=== PATIENT | male | born 1945 | race Caucasian/White ===

== ENCOUNTER 2016-12-30 22:28 | Observation (INO) | payer MEDICARE, OTHER ==
[~2016-12-30 22:28] MED LIST: LEXA10TA PO; SAW80CAP PO
[2016-12-30 22:32] VITALS: BP 157/78; PULSE 70; RESP 16; TEMP 98.6; O2SAT 96
[2016-12-30 22:46] VITALS: BP 124/65; PULSE 69; RESP 16; O2SAT 95
[2016-12-30] MEDS ORDERED: NEUR300C PO (22:54)
[2016-12-30] MEDS ORDERED: SODIUM CHLORIDE 0.9% FLUSH 10 ML FLUSH IVF PRN (23:00)
[2016-12-30 23:23] LABS: AUTOMATED NEUTROPHIL # 3.5 TH/MM3 (1.8-7.7); BASOPHIL # 0.1 TH/MM3 (0-0.2); BASOPHIL % 1.2 % (0.0-2.0); EOSINOPHIL # 0.3 TH/MM3 (0-0.4); EOSINOPHIL % 3.7 % (0.0-4.0); HEMATOCRIT 38.5 % (39.0-51.0); HEMO FLAGS DIFF FINAL; LYMPH % 36.8 % (9.0-44.0); LYMPHOCYTE # 2.6 TH/MM3 (1.0-4.8); MEAN CELL VOLUME 89.8 FL (80.0-100.0); MEAN CORPUSCULAR HEMOGLOBIN 29.7 PG (27.0-34.0); MEAN CORPUSCULAR HGB CONC 33.1 % (32.0-36.0); MONO % 7.9 % (0.0-8.0); NEUT % 50.4 % (16.0-70.0); PLATELET COUNT 218 TH/MM3 (150-450); RED BLOOD COUNT 4.29 MIL/MM3 (4.50-5.90); RED CELL DISTRIBUTION WIDTH 13.1 % (11.6-17.2)
--- NOTE | 2016-12-30 23:26 | PD ---
HPI Chief Complaint: Cardiac Complaint Time Seen by Provider: 22:42 Travel History International Travel<30 days: No Contact w/Intl Traveler<30days: No Traveled to known affect area: No History of Present Illness HPI The patient is a 71 year old male who presents to the [facility] emergency department with a history of palpitations that he reports began at 7 PM. He reports that they seemed to spontaneously resolve, however he then began to have sharp/ice pick sensation in the left side of his chest. He reports that 3 hours ago he also began to have shortness of breath, difficulty taking a deep breath. He denies having any cough or congestion. He reports that he did this morning had 2 episodes of vomiting. He denies having any diarrhea. He reports that he has been having some constipation. His last bowel movement was 2 days ago. He reports having chronic difficulty urinating with urinary frequency and urgency. He has seen Dr. Velez for this and been diagnosed with prostatic hypertrophy, however he is not currently taking Flomax for this. The patient reports that he has an allergy to aspirin as well as nitroglycerin. The patient reports that today he has had 7 beers prior to arrival. The patient denies having any prior history of myocardial infarction. He reports that he has had atrial fibrillation in the past. He denies being on any blood thinners. He reports that his primary care physician is Dr. Domingo Weston. He reports that he last had a treadmill stress test done over a year ago. The patient denies any recent fevers, cough, congestion, neck pain, abdominal pain, or neurologic symptoms. [facility] Past Medical History Narrative Medical The patient's past medical history is significant for alcohol abuse, arthritis, anxiety disorder, history of skin cancer, history of paroxysmal atrial fibrillation, history of diverticulitis, history of chronic back pain, history of posttraumatic stress disorder. Arthritis: Yes Blood Disorders: No Anxiety: Yes Depression: Yes Heart Rhythm Problems: No Cancer: Yes (Skin) Cardiac Catheterization: No Cardiovascular Problems: Yes High Cholesterol: No Chemotherapy: No Chest Pain: Yes Congestive Heart Failure: No Coronary Artery Disease: Yes Diabetes: No Diminished Hearing: No Endocrine: No Gastrointestinal Disorders: Yes (Divurticulitis) GERD: No Glaucoma: No Genitourinary: No Hepatitis: No Hiatal Hernia: No Heparin Induced Thrombocytopen: No Hypertension: Yes Immune Disorder: No Implanted Vascular Access Dvce: No Musculoskeletal: Yes (Back) Neurologic: No Psychiatric: Yes (PTSD) Reproductive: No Respiratory: No Immunizations Current: Yes Myocardial Infarction: No Radiation Therapy: No Schizophrenia: Yes Ulcer: No Tetanus Vaccination: < 5 Years Influenza Vaccination: Yes Past Surgical History Narrative Surgical The patient's past surgical history is significant for an appendectomy, skin cancer removal. Abdominal Surgery: Yes Appendectomy: Yes Cardiac Surgery: No Cholecystectomy: No Coronary Artery Bypass Graft: No Ear Surgery: No Endocrine Surgery: No Eye Surgery: No Genitourinary Surgery: No Gynecologic Surgery: No Neurologic Surgery: No Oral Surgery: No Thoracic Surgery: No Other Surgery: Yes (Appendectomy, Skin cancer removal) Family History Family Myocardial Infarction: Yes (FATHER & MOTHER) Social History Alcohol Use: Yes (FREQUENTLY today 7 beers) Tobacco Use: No Substance Use: No Allergies-Medications (Allergen,Severity, Reaction): Coded Allergies: Aspirin (Verified Allergy, Severe, HIVES, 12/30/16) Ibuprofen (Verified Allergy, Severe, HIVES, 12/30/16) Nitroglycerin (Verified Allergy, Severe, HIVES/HYPERTENSION, 12/30/16) Shrimp (Verified Allergy, Severe, HIVES, 12/30/16) Nonsteroidal Anti-Inflammatory Agts (Verified Allergy, Unknown, hives, 12/30) Reported Meds & Prescriptions Reported Meds & Active Scripts Active Reported Neurontin (Gabapentin) 300 Mg Cap 300 Mg PO BID Review of Systems Except as stated in HPI: all other systems reviewed are Neg General / Constitutional: No: Fever Eyes: No: Visual changes HENT: No: Headaches Cardiovascular: Positive: Chest Pain or Discomfort, Palpitations, Dyspnea on exertion, No: Diaphoresis Respiratory: Positive: Shortness of Breath, No: Cough Gastrointestinal: Positive: Nausea, Vomiting (2 this morning), Constipation, Changes in Bowel Habits, No: Diarrhea, Abdominal Pain, Hematemesis, Hematochezia, Indigestion, Loss of Appetite Genitourinary: No: Dysuria Musculoskeletal: No: Pain Skin: No Rash Neurologic: No: Weakness Psychiatric: No: Depression Endocrine: No: Polydipsia Hematologic/Lymphatic: No: Easy Bruising Physical Exam Narrative General: The patient is a well-developed well-nourished male in no acute distress. Head and Neck exam: Head is normocephalic atraumatic. Eyes: EOMI, pupils are equal round and reactive to light. Nose: Midline septum with pink mucous membranes Mouth: Dentition unremarkable. Moist mucus membranes. Posterior oropharynx is not erythematous. No tonsillar hypertrophy. Uvula midline. Airway patent. Neck: No palpable lymphadenopathy. No nuchal rigidity. No thyromegaly. Cardiovascular: Regular rate and rhythm without murmurs, gallops, or rubs. No pulse deficit to the extremities and simultaneous auscultation and palpation of his radial artery. Lungs: Clear to auscultation bilaterally. No wheezes, rhonchi, or rales. Abdomen: Soft, with reported tenderness on palpation of the midepigastric area, no other tenderness on palpation of the other quadrants of the abdomen. No guarding, rebound, or rigidity. Normal bowel sounds are audible. No tenderness on palpation of McBurney's point. Negative Vanderwagen sign. Extremities: No clubbing, cyanosis, or edema. 2+ pulses in all 4 extremities. No calf tenderness on palpation. Back: No costovertebral angle tenderness to palpation. Neurologic Exam: Cranial nerves 2-12 were intact on exam. Strength is 5/5 in all 4 extremities. No sensory deficits noted. The patient is oriented to person, place, time, and situation. Skin Exam: No rash noted. Intact skin that is warm and dry. Data Data Last Documented VS Vital Signs Date Time Temp Pulse Resp B/P Pulse Ox O2 Delivery O2 Flow Rate FiO2 12/30/16 22:46 69 16 124/65 95 Nasal Cannula 2 12/30/16 22:32 98.6 Orders Complete Blood Count With Diff (12/30/16 22:34) Electrocardiogram (12/30/16 22:51) B-Type Natriuretic Peptide (12/30/16 22:51) Ckmb (Isoenzyme) Profile (12/30/16 22:51) Magnesium (Mg) (12/30/16 22:51) Prothrombin Time / Inr (Pt) (12/30/16 22:51) Act Partial Throm Time (Ptt) (12/30/16 22:51) Troponin I (12/30/16 22:51) Lipase (12/30/16 22:51) Chest, Single Ap (12/30/16 22:51) Ecg Monitoring (12/30/16 22:51) Bilateral Bp Monitoring (12/30/16 22:51) Iv Access Insert/Monitor (12/30/16 22:51) Oximetry (12/30/16 22:51) Oxygen Administration (12/30/16 22:51) Sodium Chloride 0.9% Flush (Ns Flush) (12/30/16 23:00) Ondansetron Inj (Zofran Inj) (12/30/16 23:30) Pantoprazole Inj (Protonix Inj) (12/30/16 23:30) Sodium Chlorid 0.9% 500 Ml Inj (Ns 500 M (12/30/16 23:30) Comprehensive Metabolic Panel (12/30/16 22:56) CKMB (12/30/16 22:56) CKMB% (12/30/16 22:56) Admit Order (Ed Use Only) (12/31/16 00:53) Labs Laboratory Tests Test 12/30/16 12/30/16 22:56 23:13 Prothrombin Time 10.5 SEC Prothromb Time International 1.0 RATIO Ratio Activated Partial 25.9 SEC Thromboplast Time Sodium Level 140 MEQ/L Potassium Level 3.9 MEQ/L Chloride Level 106 MEQ/L Carbon Dioxide Level 25.7 MEQ/L Anion Gap 8 MEQ/L Blood Urea Nitrogen 16 MG/DL Creatinine 0.92 MG/DL Estimat Glomerular Filtration 81 ML/MIN Rate Random Glucose 72 MG/DL Calcium Level 8.8 MG/DL Magnesium Level 2.2 MG/DL Total Bilirubin 0.2 MG/DL Aspartate Amino Transf 17 U/L (AST/SGOT) Alanine Aminotransferase 23 U/L (ALT/SGPT) Alkaline Phosphatase 72 U/L Total Creatine Kinase 101 U/L Creatine Kinase MB 1.1 NG/ML Troponin I LESS THAN 0.02 NG/ML B-Type Natriuretic Peptide 18 PG/ML Total Protein 7.2 GM/DL Albumin 3.9 GM/DL Lipase 94 U/L White Blood Count 7.0 TH/MM3 Red Blood Count 4.29 MIL/MM3 Hemoglobin 12.7 GM/DL Hematocrit 38.5 % Mean Corpuscular Volume 89.8 FL Mean Corpuscular Hemoglobin 29.7 PG Mean Corpuscular Hemoglobin 33.1 % Concent Red Cell Distribution Width 13.1 % Platelet Count 218 TH/MM3 Mean Platelet Volume 7.8 FL Neutrophils (%) (Auto) 50.4 % Lymphocytes (%) (Auto) 36.8 % Monocytes (%) (Auto) 7.9 % Eosinophils (%) (Auto) 3.7 % Basophils (%) (Auto) 1.2 % Neutrophils # (Auto) 3.5 TH/MM3 Lymphocytes # (Auto) 2.6 TH/MM3 Monocytes # (Auto) 0.6 TH/MM3 Eosinophils # (Auto) 0.3 TH/MM3 Basophils # (Auto) 0.1 TH/MM3 CBC Comment DIFF FINAL Differential Comment MDM Medical Decision Making Medical Screen Exam Complete: Yes Emergency Medical Condition: Yes Medical Record Reviewed: Yes Interpretation(s) Last Impressions Chest X-Ray 12/30/16 2770 Signed Impressions: Service Date/Time: Friday, December 30, 2016 23:25 - CONCLUSION: Normal examination. Stephen Gustafson MD Differential Diagnosis Pancreatitis, versus peptic ulcer disease, versus gastritis, versus acid reflux , versus acute coronary syndrome, versus paroxysmal atrial fibrillation, versus electrolyte derangements, versus dehydration Narrative Course During the course of the patients emergency department visit, the patients history, examination, and differential diagnosis were reviewed with the patient. The patient had IV access obtained and blood work sent for analysis. The patient was placed on a diagnostic cardiac sonographer with oximetry and blood pressure monitoring. An EKG was done on arrival. The patient's EKG reveals a sinus rhythm of 64, and no acute ST segment elevation or depression, QRS duration is 94 ms, QTc is 417 ms. The patient was initially provided Protonix 40 mg IV, Zofran 4 mg IV for nausea , normal saline a 500 mL bolus. The patients laboratory studies were reviewed and remarkable for a white count of 7.0, hemoglobin 12.7, platelets 218 with a normal differential CMP is remarkable for a glucose of 72, initial set of cardiac enzymes are negative, BNP 18, PT PTT within normal limits. Radiology studies were reviewed and remarkable for a chest x-ray that shows no acute abnormality. The patient was agreeable with the plan to be admitted to the chest pain center for rule out serial cardiac enzyme protocol. The patients results were discussed with the patient, including the plan of care. I explained that further testing and/ or monitoring is indicated based on the patients history, examination, and/ or laboratory findings. Therefore, I recommended admission for additional evaluation. The patient expressed understanding and was agreeable with this plan. The patient was admitted to the hospital in stable condition and sent to a bed under the care of the chest pain center. Diagnosis Primary Impression: Palpitations Additional Impression: Chest pain Qualified Code: R07.9 - Chest pain, unspecified type Admitting Information Admitting Physician Requests: Oneyda Rey MD Dec 30, 2016 23:26
[2016-12-30] MEDS ORDERED: SODIUM CHLORID 0.9% 500 ML INJ 500 ML IV ONE (23:30)
[2016-12-30] MEDS ORDERED: ONDANSETRON HCL 4 MG/2 ML VIAL IV ONE (23:30)
[2016-12-30] MEDS ORDERED: PANTOPRAZOLE SODIUM 40 MG VIAL IV PUSH ONE (23:30)
[2016-12-30 23:42] LABS: APTT (PATIENT) 25.9 SEC (24.3-30.1); PROTHROMBIN TIME - PATIENT 10.5 SEC (9.8-11.6)
--- NOTE | 2016-12-30 23:53 | RADRPT ---
EXAM DATE/TIME: 12/30/2016 23:25 [facility] COMPARISON: CHEST SINGLE AP, July 03, 2016, 16:08. INDICATIONS : Chest pain. MEDICAL HISTORY : None. SURGICAL HISTORY : None. ENCOUNTER: Initial ACUITY: 1 day PAIN SCORE: 0/10 LOCATION: Bilateral chest FINDINGS: A single view of the chest demonstrates the lungs to be symmetrically aerated without evidence of mas s, infiltrate or effusion. The cardiomediastinal contours are unremarkable. Osseous structures are intact. CONCLUSION: Normal examination. Stephen Gustafson MD on December 30, 2016 at 23:51 Board Certified Radiologist. This report was verified electronically.
[2016-12-30 23:54] LABS: ALT (GPT) 23 U/L (12-78); ANION GAP 8 MEQ/L (5-15); AST (GOT) 17 U/L (15-37); BICARBONATE 25.7 MEQ/L (21.0-32.0); BLOOD UREA NITROGEN 16 MG/DL (7-18); CHLORIDE 106 MEQ/L (98-107); GLOMERULAR FILTRATION RATE 81 ML/MIN (>89); MAGNESIUM 2.2 MG/DL (1.5-2.5); POTASSIUM 3.9 MEQ/L (3.5-5.1); SODIUM (NA) 140 MEQ/L (136-145)
[2016-12-30 23:58] LABS: ALKALINE PHOSPHATASE 72 U/L (45-117); CREATINE KINASE 101 U/L (39-308); TOTAL BILIRUBIN ADULT 0.2 MG/DL (0.2-1.0)
[2016-12-31 00:10] LABS: CKMB 1.1 NG/ML (0.5-3.6)
[2016-12-31] MEDS ORDERED: ACETAMINOPHEN 500 MG CPLT PO PRN (01:45)
[2016-12-31] MEDS ORDERED: SODIUM CHLORIDE 0.9% FLUSH 10 ML FLUSH IV FLUSH PRN (01:45)
[2016-12-31] MEDS ORDERED: ONDANSETRON HCL 4 MG/2 ML VIAL IV PRN (01:45)
[2016-12-31 02:00] VITALS: BP 104/61; PULSE 70; RESP 16; O2SAT 97
[2016-12-31 02:56] LABS: CREATINE KINASE 84 U/L (39-308)
[2016-12-31 03:01] VITALS: PULSE 54
[2016-12-31 04:34] VITALS: BP 110/62; PULSE 66; RESP 18; TEMP 98.4; O2SAT 95
[2016-12-31 05:00] VITALS: O2SAT 96
[2016-12-31 05:07] LABS: CREATINE KINASE 83 U/L (39-308)
[2016-12-31 07:33] VITALS: BP 121/63; PULSE 63; RESP 16; TEMP 99.1; O2SAT 98
--- NOTE | 2016-12-31 08:54 | HHI.HP ---
[facility] Primary Care Physician Domingo Weston MD Chief Complaint Palpitations History of Present Illness This is a 71-year-old male that presents to ED with complaint of palpitations yesterday as well as having a dull ache lasted less than 2 minutes. He has history of paroxysmal A. fib was observed May 2016. He has not followed up with primary care or manager diversity since. Denies history of CAD. Denies recent travel. Denies recent illness. Has had no nausea, diaphoresis, or shortness of breath with the symptoms. Review of Systems General: Patient denies fevers, chills recent, and recent travel HEENT: Patient denies headache, sore throat, difficulty swallowing. Cardiovascular: Has the chest discomfort as mentioned above. Complains of palpitations but has a hard time describing them. No syncope. Denies diaphoresis. Respiratory: Denies shortness of breath or inspirational chest discomfort. Denies coughing wheezing or hemoptysis. GI: Patient denies nausea, vomiting, diarrhea, abdominal pain, bloody stools. Musculoskeletal: Patient denies joint pain or edema. Denies calf pain or edema. Neurovascular: Patient denies numbness, tingling, weakness in extremities. Denies headache. Endocrine: Denies polyuria and polydipsia. Hematologic: Denies easy bruising. Skin: Denies rash or itching. Past Family Social History Allergies: Coded Allergies: Aspirin (Verified Allergy, Severe, HIVES, 12/30/16) Ibuprofen (Verified Allergy, Severe, HIVES, 12/30/16) Nitroglycerin (Verified Allergy, Severe, HIVES/HYPERTENSION, 12/30/16) Shrimp (Verified Allergy, Severe, HIVES, 12/30/16) Nonsteroidal Anti-Inflammatory Agts (Verified Allergy, Unknown, hives, 12/30) Past Medical History Paroxysmal atrial fibrillation. PTSD. Alcohol abuse. Denies hypertension, hyperlipidemia, diabetes, and CAD. Past Surgical History Noncontributory. Reported Medications Reported Meds & Active Scripts Active Reported Neurontin (Gabapentin) 300 Mg Cap 300 Mg PO BID Active Ordered Medications Current Medications Medications (Trade) Dose Ordered Sig/Luba Route Start Time Stop Time Status Last Admin (NS Flush) 2 ml UNSCH PRN IVF 12/30/16 23:00 (NS Flush) 2 ml UNSCH PRN IV FLUSH 12/31/16 01:45 (NS Flush) 2 ml BID IV FLUSH 12/31/16 09:00 (Tylenol) 500 mg Q4H PRN PO 12/31/16 01:45 (Zofran Inj) 4 mg Q6H PRN IV 12/31/16 01:45 (Protonix) 40 mg DAILY PO 12/31/16 09:00 Family History Denies family history of CAD. Social History Patient continues to drink alcohol. States he longer smokes cigarettes. Denies illicit drugs. Physical Exam Vital Signs Vital Signs Date Time Temp Pulse Resp B/P Pulse Ox O2 Delivery O2 Flow Rate FiO2 12/31/16 07:33 99.1 63 16 121/63 98 12/31/16 05:00 96 Nasal Cannula 2.00 12/31/16 04:34 98.4 66 18 110/62 95 12/31/16 03:01 54 12/31/16 02:00 70 16 104/61 97 Nasal Cannula 2 12/30/16 22:46 69 16 124/65 95 Nasal Cannula 2 12/30/16 22:32 98.6 70 16 157/78 96 Room Air Physical Exam GENERAL: This is a well-nourished, well-developed patient, in no apparent distress. Patient speaks in clear complete sentences. Patient is pleasant. HEENT: Head is atraumatic and normocephalic. Neck is supple without lymphadenopathy and trachea is midline. No JVD or carotid bruits. CARDIOVASCULAR: Regular rate and rhythm without murmurs, gallops, or rubs. RESPIRATORY: Clear to auscultation. Breath sounds equal bilaterally. No wheezes , rales, or rhonchi. Chest wall is nontender. No use of accessory muscles. GASTROINTESTINAL: Abdomen is nontender, nondistended. Abdomen soft. No obvious pulsatile mass or bruit. No CVA tenderness. Strong femoral pulses bilaterally. Normal bowel sounds in all quadrants. MUSCULOSKELETAL: Patient is moving upper and lower extremities freely. No calf tenderness or edema, no Homans sign. Strong pulses in upper and lower extremities. NEUROLOGICAL: Patient is alert and oriented. Cranial nerves 2-12 are grossly intact. No focal deficits and speech is clear. SKIN: No rash and turgor is normal. Laboratory Laboratory Tests Test 12/30/16 12/30/16 12/31/16 12/31/16 22:56 23:13 02:01 04:03 Prothrombin Time 10.5 Prothromb Time International 1.0 Ratio Activated Partial 25.9 Thromboplast Time Sodium Level 140 Potassium Level 3.9 Chloride Level 106 Carbon Dioxide Level 25.7 Anion Gap 8 Blood Urea Nitrogen 16 Creatinine 0.92 Estimat Glomerular Filtration 81 Rate Random Glucose 72 Calcium Level 8.8 Magnesium Level 2.2 Total Bilirubin 0.2 Aspartate Amino Transf 17 (AST/SGOT) Alanine Aminotransferase 23 (ALT/SGPT) Alkaline Phosphatase 72 Total Creatine Kinase 101 84 83 Creatine Kinase MB 1.1 Troponin I LESS THAN 0.02 LESS THAN 0.02 LESS THAN 0.02 B-Type Natriuretic Peptide 18 Total Protein 7.2 Albumin 3.9 Lipase 94 White Blood Count 7.0 Red Blood Count 4.29 Hemoglobin 12.7 Hematocrit 38.5 Mean Corpuscular Volume 89.8 Mean Corpuscular Hemoglobin 29.7 Mean Corpuscular Hemoglobin 33.1 Concent Red Cell Distribution Width 13.1 Platelet Count 218 Mean Platelet Volume 7.8 Neutrophils (%) (Auto) 50.4 Lymphocytes (%) (Auto) 36.8 Monocytes (%) (Auto) 7.9 Eosinophils (%) (Auto) 3.7 Basophils (%) (Auto) 1.2 Neutrophils # (Auto) 3.5 Lymphocytes # (Auto) 2.6 Monocytes # (Auto) 0.6 Eosinophils # (Auto) 0.3 Basophils # (Auto) 0.1 CBC Comment DIFF FINAL Differential Comment Result Diagram: 12/30/16 2313 12/30/16 2256 Imaging Last 24 hours Impressions Chest X-Ray 12/30/161 Signed Impressions: Service Date/Time: Friday, December 30, 2016 23:25 - CONCLUSION: Normal examination. Stephen Gustafson MD Course EKG is a sinus rhythm to sinus bradycardia without significant ST segment depressions or elevations. Assessment and Plan Assessment and Plan * Palpitations: Patient has been observed on the monitor overnight. There have been no arrhythmias. He has had serial cardiac enzymes and EKGs for ruling out purposes. He was seen by Dr. Anderson cardiology in the chest pain center and will be discharged home at this time with instructions to follow-up with a local primary care physician. * History of paroxysmal atrial for ablation: Patient has been in sinus rhythm while being monitored in the chest pain center. He is a Clayton score of 1. He is declining aspirin as well as declining stress testing. He states he had a stress test 4 months ago that was okay. Patient is stable this time. He is agreeable to this plan.. Chad Alaniz Dec 31, 2016 08:54
--- NOTE | 2016-12-31 08:56 | HHI.DCPOC ---
Discharge Care Plan Diagnosis: (1) Palpitations (2) Paroxysmal atrial fibrillation (3) Alcohol abuse Goals to Promote Your Health * To prevent worsening of your condition and complications * To maintain your health at the optimal level Directions to Meet Your Goals Take your medications as prescribed Follow your dietary instruction Follow activity as directed Keep your appointments as scheduled Take your immunizations and boosters as scheduled If your symptoms worsen call your PCP, if no PCP go to Urgent Care Center or Emergency Room Smoking is Dangerous to Your Health. Avoid second hand smoke Call the 24-hour hour crisis hotline for domestic abuse at Chad Alaniz Dec 31, 2016 08:56
[2016-12-31 08:57] VITALS: PULSE 60
[2016-12-31] MEDS ORDERED: PANTOPRAZOLE SOD 40 MG DELAYED RELEASE TAB PO SCH (09:00)
[2016-12-31] MEDS ORDERED: SODIUM CHLORIDE 0.9% FLUSH 10 ML FLUSH IV FLUSH SCH (09:00)
--- NOTE | 2016-12-31 16:18 | EKG ---
Date Performed: 12/31/2016 Time Performed: 05:10:59 PTAGE: 71 years EKG: SINUS BRADYCARDIA BORDERLINE ECG Since PREVIOUS TRACING , no significant change noted PREVIOUS TRACIN12/31/2016 02.13 DOCTOR: Camille Anderson Interpretating Date/Time 12/31/2016 16:16:25
--- NOTE | 2016-12-31 16:19 | EKG ---
Date Performed: 12/31/2016 Time Performed: 02:13:00 PTAGE: 71 years EKG: SINUS BRADYCARDIA BORDERLINE ECG Since PREVIOUS TRACING , no significant change noted PREVIOUS TRACIN12/30/2016 22.59 DOCTOR: Camille Anderson Interpretating Date/Time 12/31/2016 16:16:59
--- NOTE | 2016-12-31 16:19 | EKG ---
Date Performed: 12/30/2016 Time Performed: 22:59:44 PTAGE: 71 years EKG: Sinus rhythm NORMAL ECG Since PREVIOUS TRACING , no significant change noted PREVIOUS TRACIN07/03/2016 16.09 DOCTOR: Camille Anderson Interpretating Date/Time 12/31/2016 16:17:24
== END 2016-12-31 10:22 | disposition home or self-care (01) ==
LOC: NEPC 22:28 → NEDA 12-31 00:54 → NEPFCDU 12-31 02:29
PROVIDERS: ADMIT Internal Medicine Interventional Cardiology; ATTEND Internal Medicine Interventional Cardiology
DX: R00.2 Palpitations (principal); I48.0 Paroxysmal atrial fibrillation; I25.10 Atherosclerotic heart disease of native coronary artery without angina pectoris; I10 Essential (primary) hypertension; F20.9 Schizophrenia, unspecified; M19.90 Unspecified osteoarthritis, unspecified site; F17.210 Nicotine dependence, cigarettes, uncomplicated; Z85.828 Personal history of other malignant neoplasm of skin; Z88.8 Allergy status to other drugs, medicaments and biological substances; Z88.6 Allergy status to analgesic agent; Z91.013 Allergy to seafood
CPT/HCPCS: 71010; 80053; 82550; 82552; 82948; 83690; 83735; 83880; 84484; 85025; 85610; 85730; 93005; 96361; 96374; 96375; 99285; C9113; G0378; J2405; J7040

== ENCOUNTER 2017-01-01 21:48 | Observation (INO) | payer MEDICARE, OTHER ==
[~2017-01-01 21:48] MED LIST changes: -LEXA10TA PO; +NEUR300C PO; -SAW80CAP PO
[2017-01-01 21:50] VITALS: BP 127/71; PULSE 79; RESP 18; TEMP 99.6; O2SAT 96
--- NOTE | 2017-01-01 21:58 | PD ---
Physical Exam Time Seen by Provider: 21:56 Narrative 71yo M c/o chest pressure, SOB, and Nausea for the past several days with worsening tonight. HX afib and does not take medications. Reports heart palpitations. Patient seen in triage. VS reviewed. Awaiting bed placement. Data Data Last Documented VS Vital Signs Date Time Temp Pulse Resp B/P Pulse Ox O2 Delivery O2 Flow Rate FiO2 01/01/17 21:50 99.6 79 18 127/71 96 Room Air MDM Supervised Visit with JOY: Raquel Raymond Jan 01, 2017 21:58
--- NOTE | 2017-01-01 22:47 | PD ---
HPI Chief Complaint: Chest Pain Time Seen by Provider: 22:29 Travel History International Travel<30 days: No Contact w/Intl Traveler<30days: No Traveled to known affect area: No History of Present Illness HPI 71yo M with PMH of paroxysmal afib presents to the ED with c/o left sided chest pain today. Pt states pain is pressure like, intermittent and nonradiating. Associated with sob, nausea and vomiting. Pt also has bladder problem and follows with urologist Dr. Velez and has some suprapubic pain. Pt was just discharged from the chest pain center yesterday and was evaluated by Dr. Anderson. However, pt refused stress test as per their notes. Pt states now he wants the stress test. Pt is allergic to aspirin. PFSH Past Medical History Arthritis: Yes Blood Disorders: No Anxiety: Yes Depression: Yes Heart Rhythm Problems: Yes (AFIB) Cancer: Yes (Skin) Cardiac Catheterization: No Cardiovascular Problems: Yes High Cholesterol: No Chemotherapy: No Chest Pain: Yes Congestive Heart Failure: No Coronary Artery Disease: Yes Diabetes: No Diminished Hearing: No Endocrine: No Gastrointestinal Disorders: Yes (Divurticulitis) GERD: No Glaucoma: No Genitourinary: No Hepatitis: No Hiatal Hernia: No Heparin Induced Thrombocytopen: No Hypertension: Yes Immune Disorder: No Implanted Vascular Access Dvce: No Musculoskeletal: Yes (Back) Neurologic: No Psychiatric: Yes (PTSD) Reproductive: No Respiratory: No Immunizations Current: Yes Myocardial Infarction: No Radiation Therapy: No Schizophrenia: Yes Ulcer: No Past Surgical History Abdominal Surgery: Yes Appendectomy: Yes Cardiac Surgery: No Cholecystectomy: No Coronary Artery Bypass Graft: No Ear Surgery: No Endocrine Surgery: No Eye Surgery: No Genitourinary Surgery: No Gynecologic Surgery: No Neurologic Surgery: No Oral Surgery: No Thoracic Surgery: No Other Surgery: Yes (Appendectomy, Skin cancer removal) Family History Family Myocardial Infarction: Yes Social History Alcohol Use: Yes (FREQUENTLY today 7 beers) Tobacco Use: No Substance Use: No Allergies-Medications (Allergen,Severity, Reaction): Coded Allergies: Aspirin (Verified Allergy, Severe, HIVES, 01/01/17) Ibuprofen (Verified Allergy, Severe, HIVES, 01/01/17) Nitroglycerin (Verified Allergy, Severe, HIVES/HYPERTENSION, 01/01/17) Shrimp (Verified Allergy, Severe, HIVES, 01/01/17) Nonsteroidal Anti-Inflammatory Agts (Verified Allergy, Unknown, hives, 01/01) Reported Meds & Prescriptions Reported Meds & Active Scripts Active Reported Neurontin (Gabapentin) 300 Mg Cap 300 Mg PO BID Review of Systems Except as stated in HPI: all other systems reviewed are Neg Physical Exam Narrative GENERAL: 71yo M not in distress. SKIN: Focused skin assessment warm/dry. HEAD: Atraumatic. Normocephalic. CARDIOVASCULAR: Regular rate and rhythm. No murmur appreciated. RESPIRATORY: No accessory muscle use. Clear to auscultation. Breath sounds equal bilaterally. GASTROINTESTINAL: Abdomen soft, mild ttp suprapubic region. No rebound tenderness or guarding. MUSCULOSKELETAL: No obvious deformities. No clubbing. No cyanosis. No edema. NEUROLOGICAL: Awake and alert. No obvious cranial nerve deficits. Motor grossly within normal limits. Normal speech. PSYCHIATRIC: Appropriate mood and affect; insight and judgment normal. Data Data Last Documented VS Vital Signs Date Time Temp Pulse Resp B/P Pulse Ox O2 Delivery O2 Flow Rate FiO2 01/02/17 01:20 68 18 120/68 96 Room Air 01/01/17 21:50 99.6 Orders Basic Metabolic Panel (Bmp) (01/01/17 22:41) Ckmb (Isoenzyme) Profile (01/01/17 22:41) Complete Blood Count With Diff (01/01/17 22:41) Prothrombin Time / Inr (Pt) (01/01/17 22:41) Act Partial Throm Time (Ptt) (01/01/17 22:41) Troponin I (01/01/17 22:41) Chest, Single Ap (01/01/17 22:41) Urinalysis - C+S If Indicated (01/01/17 22:41) Morphine Inj (Morphine Inj) (01/01/17 23:30) CKMB (01/01/17 22:45) CKMB% (01/01/17 22:45) Ct Abd/Pel W Iv Contrast(Rout) (01/02/17 ) Iohexol 350 Inj (Omnipaque 350 Inj) (01/02/17 00:36) Admit Order (Ed Use Only) (01/02/17 01:22) Labs Laboratory Tests Test 01/01/17 01/01/17 22:38 22:45 Urine Color LIGHT-YELLOW Urine Turbidity CLEAR Urine pH 5.0 Urine Specific [place] 1.005 Urine Protein NEG mg/dL Urine Glucose (UA) NEG mg/dL Urine Ketones NEG mg/dL Urine Occult Blood NEG Urine Nitrite NEG Urine Bilirubin NEG Urine Urobilinogen LESS THAN 2.0 MG/DL Urine Leukocyte Esterase NEG Urine RBC 1 /hpf Urine WBC 1 /hpf Urine Hyaline Casts 1 /lpf Microscopic Urinalysis Comment CULT NOT INDICATED White Blood Count 7.2 TH/MM3 Red Blood Count 4.29 MIL/MM3 Hemoglobin 13.0 GM/DL Hematocrit 38.4 % Mean Corpuscular Volume 89.4 FL Mean Corpuscular Hemoglobin 30.2 PG Mean Corpuscular Hemoglobin 33.8 % Concent Red Cell Distribution Width 13.2 % Platelet Count 227 TH/MM3 Mean Platelet Volume 7.7 FL Neutrophils (%) (Auto) 58.0 % Lymphocytes (%) (Auto) 29.2 % Monocytes (%) (Auto) 8.8 % Eosinophils (%) (Auto) 3.2 % Basophils (%) (Auto) 0.8 % Neutrophils # (Auto) 4.2 TH/MM3 Lymphocytes # (Auto) 2.1 TH/MM3 Monocytes # (Auto) 0.6 TH/MM3 Eosinophils # (Auto) 0.2 TH/MM3 Basophils # (Auto) 0.1 TH/MM3 CBC Comment DIFF FINAL Differential Comment Prothrombin Time 10.5 SEC Prothromb Time International 1.0 RATIO Ratio Activated Partial 25.7 SEC Thromboplast Time Sodium Level 137 MEQ/L Potassium Level 3.5 MEQ/L Chloride Level 100 MEQ/L Carbon Dioxide Level 25.1 MEQ/L Anion Gap 12 MEQ/L Blood Urea Nitrogen 16 MG/DL Creatinine 1.00 MG/DL Estimat Glomerular Filtration 73 ML/MIN Rate Random Glucose 85 MG/DL Calcium Level 8.9 MG/DL Total Creatine Kinase 121 U/L Creatine Kinase MB 1.1 NG/ML Troponin I LESS THAN 0.02 NG/ML [facility] Medical Decision Making Medical Screen Exam Complete: Yes Emergency Medical Condition: Yes Interpretation(s) EKG: NSR 69bpm. Normal axis. No ST segment elevation or depression. Differential Diagnosis ACS vs. atypical chest pain Narrative Course 71yo M here with c/o left sided chest pain that is pressure like. Labs reviewed , no leukocytosis. Troponin negative. UA showed negative leukocyte and nitrite. CTa/p showed normal exam. CXR negative. Although pt was just discharged from the chest pain center, he had refused stress test and now is stating that he wants the stress test. Pt states he was not given instructions on which procedures rn to follow up with. Since he did not get a stress test and now is stating that he will not refuse it, I feel that observation in chest pain center with complete stress test can r/o ACS. Diagnosis Primary Impression: Chest pain Qualified Code: R07.9 - Chest pain, unspecified type Admitting Information Admitting Physician Requests: Observation Ailyn Oates DO Jan 01, 2017 22:47 Ailyn Oates DO Jan 01, 2017 22:47
--- NOTE | 2017-01-01 22:57 | RADRPT ---
EXAM DATE/TIME: 01/01/2017 22:52 [facility] COMPARISON: CHEST SINGLE AP, December 30, 2016, 23:25. INDICATIONS : Chest pain for 1 days. MEDICAL HISTORY : None. SURGICAL HISTORY : None. ENCOUNTER: Initial ACUITY: 1 day PAIN SCORE: 4/10 LOCATION: Bilateral chest FINDINGS: A single view of the chest demonstrates the lungs to be symmetrically aerated without evidence of mas s, infiltrate or effusion. The cardiomediastinal contours are unremarkable. Osseous structures are intact. CONCLUSION: No acute disease. Goldy Segura MD on January 01, 2017 at 22:52 Board Certified Radiologist. This report was verified electronically.
[2017-01-01 23:06] LABS: AUTOMATED NEUTROPHIL # 4.2 TH/MM3 (1.8-7.7); BASOPHIL # 0.1 TH/MM3 (0-0.2); BASOPHIL % 0.8 % (0.0-2.0); EOSINOPHIL # 0.2 TH/MM3 (0-0.4); EOSINOPHIL % 3.2 % (0.0-4.0); HEMATOCRIT 38.4 % (39.0-51.0); HEMO FLAGS DIFF FINAL; LYMPH % 29.2 % (9.0-44.0); LYMPHOCYTE # 2.1 TH/MM3 (1.0-4.8); MEAN CELL VOLUME 89.4 FL (80.0-100.0); MEAN CORPUSCULAR HEMOGLOBIN 30.2 PG (27.0-34.0); MEAN CORPUSCULAR HGB CONC 33.8 % (32.0-36.0); MONO % 8.8 % (0.0-8.0); PLATELET COUNT 227 TH/MM3 (150-450); RED BLOOD COUNT 4.29 MIL/MM3 (4.50-5.90); RED CELL DISTRIBUTION WIDTH 13.2 % (11.6-17.2); WHITE BLOOD COUNT 7.2 TH/MM3 (4.0-11.0)
[2017-01-01 23:17] LABS: APTT (PATIENT) 25.7 SEC (24.3-30.1); PROTHROMBIN TIME - PATIENT 10.5 SEC (9.8-11.6)
[2017-01-01 23:18] LABS: BLOOD, URINE NEG (NEG); COMMENT (UR) CULT NOT INDICATED; CULTURE IF INDICATED CULT NOT INDICATED; GLUCOSE,URINE NEG (NEG); HYALINE CAST, URINE 1 /lpf (RARE); KETONE, URINE NEG (NEG); NITRITE,URINE NEG (NEG); URINE COLOR LIGHT-YELLOW (YELLW/STRAW)
[2017-01-01] MEDS: MORPHINE SULFATE 4 MG/ML INJ IV PUSH ONE (23:30)
[2017-01-01 23:32] LABS: ANION GAP 12 MEQ/L (5-15); BICARBONATE 25.1 MEQ/L (21.0-32.0); BLOOD UREA NITROGEN 16 MG/DL (7-18); CHLORIDE 100 MEQ/L (98-107); GLOMERULAR FILTRATION RATE 73 ML/MIN (>89); POTASSIUM 3.5 MEQ/L (3.5-5.1); SODIUM (NA) 137 MEQ/L (136-145)
[2017-01-01 23:35] LABS: CREATINE KINASE 121 U/L (39-308)
[2017-01-01 23:48] LABS: CKMB 1.1 NG/ML (0.5-3.6)
[2017-01-02] MEDS ORDERED: IOHEXOL 350 MG/ML 10 ML VIAL (for RAD DIAG) IV ONE (00:36)
[2017-01-02] MEDS: MORPHINE SULFATE 4 MG/ML INJ IV PUSH ONE (00:48)
--- NOTE | 2017-01-02 00:51 | RADRPT ---
EXAM DATE/TIME: 01/02/2017 00:32 [facility] COMPARISON: No previous studies available for comparison. INDICATIONS : Bilateral lower abdominal pain. IV CONTRAST: 91 cc Omnipaque 350 (iohexol) IV ORAL CONTRAST: No oral contrast ingested. RADIATION DOSE: 7.89 CTDIvol (mGy) MEDICAL HISTORY : Hypertension. Diverticulitis. SURGICAL HISTORY : Appendectomy. ENCOUNTER: Initial ACUITY: 1 day PAIN SCALE: 6/10 LOCATION: Bilateral lower quadrant TECHNIQUE: Volumetric scanning of the abdomen and pelvis was performed. Using automated exposure control and ad justment of the mA and/or kV according to patient size, radiation dose was kept as low as reasonably achievable to obtain optimal diagnostic quality images. FINDINGS: LOWER LUNGS: The visualized lower lungs are clear. LIVER: Homogeneous density without lesion. There is no dilation of the biliary tree. No calcified gallston es. SPLEEN: Normal size without lesion. PANCREAS: Within normal limits. KIDNEYS: Normal in size and shape. There is no mass, stone or hydronephrosis. ADRENAL GLANDS: Within normal limits. VASCULAR: There is no aortic aneurysm. BOWEL/MESENTERY: The stomach, small bowel, and colon demonstrate no acute abnormality. There is no free intraperitone al air or fluid. ABDOMINAL WALL: Within normal limits. RETROPERITONEUM: There is no lymphadenopathy. BLADDER: No wall thickening or mass. REPRODUCTIVE: Within normal limits. INGUINAL: There is no lymphadenopathy or hernia. MUSCULOSKELETAL: Within normal limits for patient age. CONCLUSION: Normal examination. Stephen Gustafson MD on January 02, 2017 at 0:49 Board Certified Radiologist. This report was verified electronically.
[2017-01-02 01:20] VITALS: BP 120/68; PULSE 68; RESP 18; O2SAT 96
[2017-01-02 03:32] VITALS: BP 115/62; PULSE 63; RESP 14; TEMP 99; O2SAT 93
[2017-01-02 03:37] VITALS: PULSE 61
[2017-01-02 03:49] LABS: CREATINE KINASE 101 U/L (39-308)
[2017-01-02 04:01] LABS: CKMB 1.1 NG/ML (0.5-3.6)
[2017-01-02 05:28] LABS: CREATINE KINASE 103 U/L (39-308)
[2017-01-02 07:56] VITALS: BP 122/62; PULSE 70; RESP 17; TEMP 98.5; O2SAT 97
[2017-01-02 08:00] VITALS: PULSE 60
--- NOTE | 2017-01-02 08:41 | HHI.DCPOC ---
Discharge Care Plan Diagnosis: (1) Chest pain Goals to Promote Your Health * To prevent worsening of your condition and complications * To maintain your health at the optimal level Directions to Meet Your Goals Take your medications as prescribed Follow your dietary instruction Follow activity as directed Keep your appointments as scheduled Take your immunizations and boosters as scheduled If your symptoms worsen call your PCP, if no PCP go to Urgent Care Center or Emergency Room Smoking is Dangerous to Your Health. Avoid second hand smoke Call the 24-hour hour crisis hotline for domestic abuse at Chad Alaniz Jan 02, 2017 08:41
--- NOTE | 2017-01-02 08:51 | HHI.HP ---
HPI Primary Care Physician No Primary Care Physician Chief Complaint Chest pain History of Present Illness This is a 71-year-old male that presents to the ED with history of paroxysmal atrial fibrillation anxiety with a complaint of shortness of breath and left- sided chest pressure. He states that he has been having these for a few days lasting about 2 minutes at a time. He was in the chest pain center yesterday but declined stress testing. He was discharged. He presented back to the ED and requesting stress testing at this time. He is not followed by local critical care nurse at this time. His primary care physician is Dr. Weston. He had no associated nausea or diaphoresis but again was short of breath at times. Denies history of CAD. States he had a stress test about 4-6 months ago and that was okay. Denies recent illnesses. Review of Systems General: Patient denies fevers, chills recent, and recent travel HEENT: Patient denies headache, sore throat, difficulty swallowing. Cardiovascular: Has the chest discomfort as mentioned above. Denies sensation of heart beating rapidly or irregularly. No syncope. Respiratory: Intermittent shortness of breath. Denies inspirational chest discomfort. Denies coughing wheezing or hemoptysis. GI: Patient denies nausea, vomiting, diarrhea, abdominal pain, bloody stools. Musculoskeletal: Patient denies joint pain or edema. Denies calf pain or edema. Neurovascular: Patient denies numbness, tingling, weakness in extremities. Denies headache. Endocrine: Denies polyuria and polydipsia. Hematologic: Denies easy bruising. Skin: Denies rash or itching. Past Family Social History Allergies: Coded Allergies: Aspirin (Verified Allergy, Severe, HIVES, 01/01/17) Ibuprofen (Verified Allergy, Severe, HIVES, 01/01/17) Nitroglycerin (Verified Allergy, Severe, HIVES/HYPERTENSION, 01/01/17) Shrimp (Verified Allergy, Severe, HIVES, 01/01/17) Nonsteroidal Anti-Inflammatory Agts (Verified Allergy, Unknown, hives, 01/01) Past Medical History Anxiety and paroxysmal atrial fibrillation. Past Surgical History Appendectomy Reported Medications Reported Meds & Active Scripts Active Reported Neurontin (Gabapentin) 300 Mg Cap 300 Mg PO BID Family History Both parents had CAD. Social History Patient is a nonsmoker. Denies illicit drugs. He drinks on average 4-5 beers a day. Physical Exam Vital Signs Vital Signs Date Time Temp Pulse Resp B/P Pulse Ox O2 Delivery O2 Flow Rate FiO2 01/02/17 07:56 98.5 70 17 122/62 97 01/02/17 03:37 61 01/02/17 03:32 99.0 63 14 115/62 93 01/02/17 01:20 68 18 120/68 96 Room Air 01/01/17 22:12 Room Air 01/01/17 21:50 99.6 79 18 127/71 96 Room Air Physical Exam GENERAL: This is a well-nourished, well-developed patient, in no apparent distress. Patient speaks in clear complete sentences. Patient is pleasant. HEENT: Head is atraumatic and normocephalic. Neck is supple without lymphadenopathy and trachea is midline. No JVD or carotid bruits. CARDIOVASCULAR: Regular rate and rhythm without murmurs, gallops, or rubs. RESPIRATORY: Clear to auscultation. Breath sounds equal bilaterally. No wheezes , rales, or rhonchi. Chest wall is nontender. No use of accessory muscles. GASTROINTESTINAL: Abdomen is nontender, nondistended. Abdomen soft. No obvious pulsatile mass or bruit. No CVA tenderness. Strong femoral pulses bilaterally. Normal bowel sounds in all quadrants. MUSCULOSKELETAL: Patient is moving upper and lower extremities freely. No calf tenderness or edema, no Homans sign. Strong pulses in upper and lower extremities. NEUROLOGICAL: Patient is alert and oriented. Cranial nerves 2-12 are grossly intact. No focal deficits and speech is clear. SKIN: No rash and turgor is normal. Laboratory Laboratory Tests Test 01/01/17 01/01/17 01/02/17 01/02/17 22:38 22:45 02:50 04:38 Urine Color LIGHT-YELLOW Urine Turbidity CLEAR Urine pH 5.0 Urine Specific [place] 1.005 Urine Protein NEG Urine Glucose (UA) NEG Urine Ketones NEG Urine Occult Blood NEG Urine Nitrite NEG Urine Bilirubin NEG Urine Urobilinogen LESS THAN 2.0 Urine Leukocyte Esterase NEG Urine RBC 1 Urine WBC 1 Urine Hyaline Casts 1 Microscopic Urinalysis Comment CULT NOT INDICATED White Blood Count 7.2 Red Blood Count 4.29 Hemoglobin 13.0 Hematocrit 38.4 Mean Corpuscular Volume 89.4 Mean Corpuscular Hemoglobin 30.2 Mean Corpuscular Hemoglobin 33.8 Concent Red Cell Distribution Width 13.2 Platelet Count 227 Mean Platelet Volume 7.7 Neutrophils (%) (Auto) 58.0 Lymphocytes (%) (Auto) 29.2 Monocytes (%) (Auto) 8.8 Eosinophils (%) (Auto) 3.2 Basophils (%) (Auto) 0.8 Neutrophils # (Auto) 4.2 Lymphocytes # (Auto) 2.1 Monocytes # (Auto) 0.6 Eosinophils # (Auto) 0.2 Basophils # (Auto) 0.1 CBC Comment DIFF FINAL Differential Comment Prothrombin Time 10.5 Prothromb Time International 1.0 Ratio Activated Partial 25.7 Thromboplast Time Sodium Level 137 Potassium Level 3.5 Chloride Level 100 Carbon Dioxide Level 25.1 Anion Gap 12 Blood Urea Nitrogen 16 Creatinine 1.00 Estimat Glomerular Filtration 73 Rate Random Glucose 85 Calcium Level 8.9 Total Creatine Kinase 121 101 103 Creatine Kinase MB 1.1 1.1 Troponin I LESS THAN 0.02 LESS THAN 0.02 LESS THAN 0.02 Result Diagram: 01/01/17 2245 01/01/17 2245 Imaging Last 24 hours Impressions Abdomen/Pelvis CT 01/02/17 0000 Signed Impressions: Service Date/Time: December 00:32 - CONCLUSION: Normal examination. Stephen Gustafson MD Chest X-Ray 01/01/17 224 Signed Impressions: Service Date/Time: Sunday, January 01, 2017 22:52 - CONCLUSION: No acute disease. Goldy Segura MD Course EKGs have sinus rhythm without significant ST segment depressions or elevations. Assessment and Plan Assessment and Plan * Chest pain: His discomforts seem to be atypical. He has had serial cardiac enzymes and EKGs for ruling out purposes. He has been seen by Dr. Anderson cardiology in the chest pain center and will undergo a Maninder protocol ETT. He' ll be discharged home if his stress test was nonischemic. He should follow-up with his primary care physician. Patient is stable at this time. He is agreeable to this plan. Chad Alaniz Jan 02, 2017 08:51
--- NOTE | 2017-01-02 17:00 | EKG ---
Date Performed: 01/01/2017 Time Performed: 22:21:04 PTAGE: 71 years EKG: Sinus rhythm NORMAL ECG Since PREVIOUS TRACING , no significant change noted PREVIOUS TRACIN12/31/2016 05.10 DOCTOR: Camille Anderson Interpretating Date/Time 01/02/2017 16:59:53
--- NOTE | 2017-01-02 17:01 | EKG ---
Date Performed: 01/02/2017 Time Performed: 02:48:17 PTAGE: 71 years EKG: Sinus rhythm NORMAL ECG Since PREVIOUS TRACING , no significant change noted PREVIOUS TRACIN01/01/2017 22.21 DOCTOR: Camille Anderson Interpretating Date/Time 01/02/2017 17:01:00
--- NOTE | 2017-01-02 17:02 | TR ---
Date Performed: 01/02/2017 Time Performed: 08:26:03 DOCTOR: Camille Anderson DRUG LIST: CLINICAL HISTORY: CHEST PAIN REASON FOR TEST: REASON FOR ENDING: OBSERVATION: CONCLUSION: ALBERTO PROTOCOL. NO CP. TEST STOPPED SECONDARY TO LEG FATIGUE AND SOB.Maximum FL=956 Max HR Achieved=86.0% Maximum FK=327/66 Total Exercise Time=5:01 COMMENTS:
--- NOTE | 2017-01-02 17:02 | EKG ---
Date Performed: 01/02/2017 Time Performed: 05:59:34 PTAGE: 71 years EKG: Sinus rhythm NORMAL ECG Since PREVIOUS TRACING , no significant change noted PREVIOUS TRACIN01/02/2017 02.48 DOCTOR: Camille Anderson Interpretating Date/Time 01/02/2017 17:01:21
== END 2017-01-02 10:45 | disposition home or self-care (01) ==
LOC: NEPC 21:48 → NEDA 01-02 01:24 → NEPFCDU 01-02 03:43
PROVIDERS: ADMIT Internal Medicine Interventional Cardiology; ATTEND Internal Medicine Interventional Cardiology
DX: R07.89 Other chest pain (principal); I48.0 Paroxysmal atrial fibrillation; I10 Essential (primary) hypertension; I25.10 Atherosclerotic heart disease of native coronary artery without angina pectoris; F20.9 Schizophrenia, unspecified; Z88.8 Allergy status to other drugs, medicaments and biological substances; Z88.6 Allergy status to analgesic agent; Z91.013 Allergy to seafood
CPT/HCPCS: 71010; 74177; 80048; 81001; 82550; 82552; 84484; 85025; 85610; 85730; 93005; 93017; 96374; 96376; 99285; G0378; J2270; Q9967

== ENCOUNTER 2017-05-13 11:06 | Emergency (ER) | payer MEDICARE, OTHER ==
[~2017-05-13] VITALS: Ht 175.3 cm; Wt 80.0 kg
[2017-05-13 11:07] VITALS: BP 151/74; PULSE 72; RESP 16; TEMP 98.5; O2SAT 96
[2017-05-13] MEDS ORDERED: BACT800T5 PO (12:23)
[2017-05-13] MEDS ORDERED: CEPH-460 PO (12:23)
[2017-05-13] MEDS ORDERED: TRAM50TA PO (12:26)
--- NOTE | 2017-05-13 12:33 | PD ---
HPI Chief Complaint: Skin Problem Time Seen by Provider: 12:16 Travel History International Travel<30 days: No Contact w/Intl Traveler<30days: No Traveled to known affect area: No History of Present Illness HPI 71-year-old male presents to emergency department with lesion to the anterior chest. She has had for over 2 weeks. Patient was seen in [place] and prescribed Keflex 3 times a day and doxycycline twice daily with some improvement. Patient states he did get some drainage out of it several days ago. He is here as he is about to run out of his antibiotics and wonders if he should continue the versus change to something different. He denies fever, chills, or other symptoms. He states the area is 80% improved. He has multiple allergies, mainly to NSAIDs. His pain is minimal. PFSH Past Medical History Arthritis: Yes Blood Disorders: No Anxiety: Yes Depression: Yes Heart Rhythm Problems: Yes (AFIB) Cancer: Yes (Skin) Cardiac Catheterization: No Cardiovascular Problems: Yes High Cholesterol: No Chemotherapy: No Chest Pain: Yes Congestive Heart Failure: No Coronary Artery Disease: Yes Diabetes: No Diminished Hearing: No Endocrine: No Gastrointestinal Disorders: Yes (Divurticulitis) GERD: No Glaucoma: No Genitourinary: No Hepatitis: No Hiatal Hernia: No Heparin Induced Thrombocytopen: No Hypertension: Yes Immune Disorder: No Implanted Vascular Access Dvce: No Musculoskeletal: Yes (Back) Neurologic: No Psychiatric: Yes (PTSD) Reproductive: No Respiratory: No Immunizations Current: Yes Myocardial Infarction: No Radiation Therapy: No Schizophrenia: Yes Ulcer: No Past Surgical History Abdominal Surgery: Yes Appendectomy: Yes Cardiac Surgery: No Cholecystectomy: No Coronary Artery Bypass Graft: No Ear Surgery: No Endocrine Surgery: No Eye Surgery: No Genitourinary Surgery: No Gynecologic Surgery: No Neurologic Surgery: No Oral Surgery: No Thoracic Surgery: No Other Surgery: Yes (Appendectomy, Skin cancer removal) Social History Alcohol Use: Yes (FREQUENTLY today 7 beers) Tobacco Use: No Substance Use: No Allergies-Medications (Allergen,Severity, Reaction): Coded Allergies: aspirin (Unverified Allergy, Severe, HIVES, 05/13/17) nitroglycerin (Unverified Allergy, Severe, HIVES/HYPERTENSION, 05/13/17) shrimp (Unverified Allergy, Severe, HIVES, 05/13/17) diclofenac (Unverified Allergy, Unknown, hives, 05/13/17) etodolac (Unverified Allergy, Unknown, hives, 05/13/17) flurbiprofen (Unverified Allergy, Unknown, hives, 05/13/17) ibuprofen (Unverified Allergy, Unknown, hives, 05/13/17) indomethacin (Unverified Allergy, Unknown, hives, 05/13/17) ketoprofen (Unverified Allergy, Unknown, hives, 05/13/17) ketorolac (Unverified Allergy, Unknown, hives, 05/13/17) naproxen (Unverified Allergy, Unknown, hives, 05/13/17) oxaprozin (Unverified Allergy, Unknown, hives, 05/13/17) Reported Meds & Prescriptions Reported Meds & Active Scripts Active Reported Neurontin (Gabapentin) 300 Mg Cap 300 Mg PO BID Review of Systems Except as stated in HPI: all other systems reviewed are Neg General / Constitutional: No: Fever Eyes: No: Visual changes HENT: No: Headaches Cardiovascular: No: Chest Pain or Discomfort Respiratory: No: Shortness of Breath Gastrointestinal: No: Abdominal Pain Genitourinary: No: Dysuria Musculoskeletal: No: Pain Skin: No Rash Neurologic: No: Weakness Psychiatric: No: Depression Endocrine: No: Polydipsia Hematologic/Lymphatic: No: Easy Bruising Physical Exam Narrative GENERAL: Patient appears distress. SKIN: Warm and dry. Patient has a small raised indurated erythematous mildly tender lesion to the anterior chest without obvious pointing, or deep abscess appreciated with palpation. There is no expressible drainage. HEAD: Atraumatic. Normocephalic. EYES: Pupils equal and round. No scleral icterus. No injection or drainage. ENT: No nasal bleeding or discharge. Mucous membranes pink and moist. Pharynx is clear. Airway is patent. NECK: Trachea midline. Supple nontender. CARDIOVASCULAR: Regular rate and rhythm. RESPIRATORY: No accessory muscle use. Clear to auscultation. Breath sounds equal bilaterally. MUSCULOSKELETAL: Extremities without clubbing, cyanosis, or edema. No obvious deformities. NEUROLOGICAL: Awake and alert. No obvious cranial nerve deficits. Motor grossly within normal limits. Five out of 5 muscle strength in the arms and legs. Normal speech. PSYCHIATRIC: Appropriate mood and affect; insight and judgment normal. Data Data Last Documented VS Vital Signs Date Time Temp Pulse Resp B/P (MAP) Pulse Ox O2 Delivery O2 Flow Rate FiO2 05/13/17 11:07 98.5 72 16 151/74 (99) 96 Room Air MDM Medical Decision Making Medical Screen Exam Complete: Yes Emergency Medical Condition: Yes Differential Diagnosis Cellulitis. Early abscess. MRSA. Narrative Course Patient is not felt to have an drainable abscess at this time. Patient will be continued on Keflex 500 mg 3 times a day for 7 more days. Patient was switched from doxycycline to Bactrim DS twice a day 7 days. Patient is to use hot compresses to the affected area frequently through the day. Patient is to follow-up with his primary care physician or return to emergency department if symptoms do not improve or worsen as discussed Diagnosis Primary Impression: Cellulitis of chest wall Referrals: Primary Care Physician Patient Instructions: Cellulitis (ED), General Instructions, MRSA (Methicillin- Resistant Staphylococcus Aureus) (ED) Additional Instructions: Patient is not felt to have an drainable abscess at this time. Patient will be continued on Keflex 500 mg 3 times a day for 7 more days. Patient was switched from doxycycline to Bactrim DS twice a day 7 days. Patient is to use hot compresses to the affected area frequently through the day. Patient is to follow-up with his primary care physician or return to emergency department if symptoms do not improve or worsen as discussed Med/Other Pt SpecificInfo: Prescription(s) given Scripts Cephalexin (Keflex) 500 Mg Cap 500 MG PO Q8H for Infection for 7 Days, #21 CAP 0 Refills Prov: Eran Lopez MD 05/13/17 Sulfamethoxazole-Trimethoprim (Bactrim DS) 800-160 Mg Tab 1 TAB PO BID for Infection, #14 TAB 0 Refills Prov: Eran Lopez MD 05/13/17 Disposition: 01 DISCHARGE HOME Condition: Stable Aleksander Fentno May 13, 2017 12:33
== END 2017-05-13 12:58 | disposition home or self-care (01) ==
LOC: NEPC 11:06
DX: L03.313 Cellulitis of chest wall (principal); B95.62 Methicillin resistant Staphylococcus aureus infection as the cause of diseases classified elsewhere
CPT/HCPCS: 99284

== ENCOUNTER 2018-05-06 21:32 | Observation (INO) ==
--- NOTE | 2018-05-06 23:36 | XR ---
EXAM DATE: 05/06/2018 12:00 AM EDT AGE/SEX: 72 years / Male INDICATIONS: Chest pain. CLINICAL DATA: This is the patient's initial encounter. Patient reports that signs and symptoms have been present for 1 day and indicates a pain score of 7/10. MEDICAL/SURGICAL HISTORY: None. None. COMPARISON: [facility] – [place], CHEST SINGLE AP, 01/01/2017. . FINDINGS: Portable AP view of the chest demonstrates a normal-sized cardiac silhouette. No pleural effusion, ai rspace consolidation, or pneumothorax is identified. The bones and soft tissues demonstrate no acute abnormality. CONCLUSION: No acute cardiopulmonary abnormality is identified. Electronically signed by: Chris Haley MD 05/06/2018 11:34 PM EDT
[2018-05-06 23:43] LABS: Baso # (Auto) 0.1 th/mm3 (0.0-0.2); Baso % (Auto) 0.9 % (0.0-2.0); Eos # (Auto) 0.2 th/mm3 (0.0-0.4); Eos % (Auto) 2.3 % (0.0-4.0); Hematocrit 41.9 % (39.0-51.0); Lymph # (Auto) 2.3 th/mm3 (1.0-4.8); Lymph % (Auto) 33.4 % (9.0-44.0); Mean Corpuscular HGB Conc 33.4 % (32.0-36.0); Mean Corpuscular Hemoglobin 30.4 pg (27.0-34.0); Mean Corpuscular Volume 90.8 fL (80.0-100.0); Mean Platelet Volume 7.9 fL (7.0-11.0); Mono # (Auto) 0.6 th/mm3 (0.0-0.9); Mono % (Auto) 7.9 % (0.0-8.0); Neut # (Auto) 3.9 th/mm3 (1.8-7.7); Neut % (Auto) 55.5 % (16.0-70.0); Platelet Count 200 th/mm3 (150-450); Red Blood Count 4.62 mil/mm3 (4.50-5.90); Red Cell Distribution Width 13.5 % (11.6-17.2)
[2018-05-06 23:47] LABS: Activated Partial Thrombo Time 24.8 sec (24.3-30.1); Prothrombin Time 10.1 sec (9.8-11.6)
[2018-05-06 23:56] LABS: Albumin 3.7 g/dL (3.4-5.0); Anion Gap 9 meq/L (5-15); Aspartate Aminotransferase 18 U/L (15-37); Blood Urea Nitrogen 17 mg/dL (7-18); Calcium 8.8 mg/dL (8.5-10.1); Chloride 102 meq/L (98-107); Glomerular Filtration Rate 73 mL/min (>89); Glucose,Random 83 mg/dL (74-106); Potassium 3.9 meq/L (3.5-5.1); Sodium 136 meq/L (136-145)
[2018-05-06 23:57] LABS: Alanine Aminotransferase 27 U/L (12-78)
[2018-05-07 00:01] LABS: Alkaline Phosphatase 73 U/L (45-117); Total Protein 7.5 g/dL (6.4-8.2)
[2018-05-07 01:57] LABS: Bilirubin,Urine Negative (Negative); Clarity,Urine Clear (Clear); Color,Urine Colorless (Yellw/Straw); Glucose,Urine (UA) Negative (Negative); Leukocyte Esterase,Urine Negative (Negative); Mucus,Urine Few /lpf (Occasional); Nitrite,Urine Negative (Negative); Specific Gravity,Urine 1.003 (1.002-1.035)
--- NOTE | 2018-05-07 03:22 | ED ---
HPI General Chief complaint: Chest Pain Stated complaint: medical Time Seen by Provider: 05/07/18 01:23 History of Present Illness HPI narrative: Patient 72-year-old male presents emergency department for evaluation of left-sided chest achiness, very vague in description. States that he had this sometime ago and was given nitroglycerin and felt better from it. States symptoms are currently fairly mild. Does have a documented allergy to aspirin and states he cannot take it for hives. Does not know if he has a history of coronary artery disease, states he had a stress test in the past but never had a cardiac catheterization. On my initial examination patient is sleeping soundly in no distress. Mild dizziness, no nausea no vomiting, no shortness of breath. Symptoms moderate, for the past few days, associated signs symptoms as above Related Data Home Medications Medication Instructions Recorded Confirmed gabapentin 600 mg PO DAILY 05/07/18 05/07/18 trazodone 50 mg PO DAILY 05/07/18 05/07/18 Allergies Allergy/AdvReac Type Severity Reaction Status Date / Time aspirin Allergy Severe HIVES Verified 05/06/18 22:43 nitroglycerin Allergy Severe HIVES/HYPER Verified 05/06/18 22:43 TENSION shrimp Allergy Severe HIVES Verified 05/06/18 22:43 diclofenac Allergy Unknown hives Verified 05/06/18 22:43 etodolac Allergy Unknown hives Verified 05/06/18 22:43 flurbiprofen Allergy Unknown hives Verified 05/06/18 22:43 ibuprofen Allergy Unknown hives Verified 05/06/18 22:43 indomethacin Allergy Unknown hives Verified 05/06/18 22:43 ketoprofen Allergy Unknown hives Verified 05/06/18 22:43 ketorolac Allergy Unknown hives Verified 05/06/18 22:43 naproxen Allergy Unknown hives Unverified 07/10/17 10:24 oxaprozin Allergy Unknown hives Unverified 07/10/17 10:24 Review of Systems ROS: all other systems reviewed are negative [facility] Medical History Medical History Anxiety (Acute) Gastritis (Acute) Hx of unstable angina (Acute) Surgical History Surgical History History of appendectomy (Acute) Social History Social History Substance History: No History of Abuse Second Hand Smoke Exposure: No Smoking Status: Never smoker How Often Do You Have a Drink Containing Alcohol: 2 to 4 times a month Recent Travel in [facility] within the Last 8 Weeks: No Recent Out of Country Travel within the Last 8 Weeks: No Immunization History Tetanus Immunization: >5 Years Exam Narrative Exam Narrative: GENERAL: Well-developed thin male in no obvious distress. SKIN: Focused skin assessment warm/dry. HEAD: Atraumatic. Normocephalic. EYES: Pupils equal and round. No scleral icterus. No injection or drainage. ENT: No nasal bleeding or discharge. Mucous membranes pink and moist. NECK: Trachea midline. No JVD. CARDIOVASCULAR: Regular rate and rhythm. No murmur appreciated. RESPIRATORY: No accessory muscle use. Clear to auscultation. Breath sounds equal bilaterally. GASTROINTESTINAL: Abdomen soft, non-tender, nondistended. Hepatic and splenic margins not palpable. MUSCULOSKELETAL: No obvious deformities. No clubbing. No cyanosis. No edema. NEUROLOGICAL: Awake and alert. No obvious cranial nerve deficits. Motor grossly within normal limits. Normal speech. PSYCHIATRIC: Appropriate mood and affect; insight and judgment normal. Course Initial Documented Vital Signs Temperature 97.3 F L 05/06/18 22:37 Pulse Rate 72 05/06/18 22:37 Respiratory Rate 16 05/06/18 22:37 Blood Pressure 148/87 H 05/06/18 22:37 Pulse Oximetry 95 05/06/18 22:37 Last Documented Vital Signs Temperature 97.9 F 05/07/18 04:49 Pulse Rate 78 05/07/18 05:12 Respiratory Rate 16 05/07/18 04:49 Blood Pressure 114/68 05/07/18 04:49 Pulse Oximetry 95 05/07/18 04:49 Medical Decision Making [facility] Narrative Medical decision making narrative: Patient room in the emergency department, initial workup including EKG chest x-ray troponin within normal limits. Given his age I think is reasonable to place him in the chest pain center for further workup peer Medical Screen Exam Complete: Yes Emergency Medical Condition: Yes Lab Data Result diagrams: 05/06/18 23:03 05/06/18 23:03 Lab Results 05/06/18 05/06/18 05/06/18 Range/Units 23:00 23:03 23:03 WBC 7.0 (4.0-11.0) th/mm3 RBC 4.62 (4.50-5.90) mil/mm3 Hgb 14.0 (13.0-17.0) gm/dL Hct 41.9 (39.0-51.0) % MCV 90.8 (80.0-100.0) fL MCH 30.4 (27.0-34.0) pg MCHC 33.4 (32.0-36.0) % RDW 13.5 (11.6-17.2) % Plt Count 200 (150-450) th/mm3 MPV 7.9 (7.0-11.0) fL Neut % (Auto) 55.5 (16.0-70.0) % Lymph % (Auto) 33.4 (9.0-44.0) % [place] % (Auto) 7.9 (0.0-8.0) % Eos % (Auto) 2.3 (0.0-4.0) % Baso % (Auto) 0.9 (0.0-2.0) % Neut # (Auto) 3.9 (1.8-7.7) th/mm3 Lymph # (Auto) 2.3 (1.0-4.8) th/mm3 [place] # (Auto) 0.6 (0.0-0.9) th/mm3 Eos # (Auto) 0.2 (0.0-0.4) th/mm3 Baso # (Auto) 0.1 (0.0-0.2) th/mm3 WBC Differential . Differential Comment Auto diff final PT 10.1 (9.8-11.6) sec INR 1.0 Ratio APTT 24.8 (24.3-30.1) sec Sodium (136-145) meq/L Potassium (3.5-5.1) meq/L Chloride (98-107) meq/L Carbon Dioxide (21.0-32.0) meq/L Anion Gap (5-15) meq/L BUN (7-18) mg/dL Creatinine (0.60-1.30) mg/dL Estimated GFR (>89) mL/min Random Glucose (74-106) mg/dL Calcium (8.5-10.1) mg/dL Total Bilirubin (0.2-1.0) mg/dL AST (15-37) U/L ALT (12-78) U/L Alkaline Phosphatase (45-117) U/L Total Creatine Kinase (39-308) U/L Troponin I (0.02-0.05) ng/mL Total Protein (6.4-8.2) g/dL Albumin (3.4-5.0) g/dL Urine Color Colorless (Yellw/Straw) Urine Clarity Clear (Clear) Urine pH 5.0 (5.0-8.5) Ur Specific [place] 1.003 (1.002-1.035) Urine Protein Negative (Neg-Trace) mg/dL Urine Glucose (UA) Negative (Negative) mg/dL Urine Ketones Negative (Negative) mg/dL Urine Occult Blood Small H (Negative) Urine Nitrate Negative (Negative) Urine Bilirubin Negative (Negative) Urine Urobilinogen Less than 2 (Less than 2) mg/dL Ur Leukocyte Esterase Negative (Negative) Urine Mucus Few H (Occasional) /lpf Micro UA Comment Culture not ind Ur Microscopic Review Not Reportable Urine Culture Comments Culture not ind 05/06/18 05/07/18 05/07/18 Range/Units 23:03 03:34 06:25 WBC (4.0-11.0) th/mm3 RBC (4.50-5.90) mil/mm3 Hgb (13.0-17.0) gm/dL Hct (39.0-51.0) % MCV (80.0-100.0) fL MCH (27.0-34.0) pg MCHC (32.0-36.0) % RDW (11.6-17.2) % Plt Count (150-450) th/mm3 MPV (7.0-11.0) fL Neut % (Auto) (16.0-70.0) % Lymph % (Auto) (9.0-44.0) % [place] % (Auto) (0.0-8.0) % Eos % (Auto) (0.0-4.0) % Baso % (Auto) (0.0-2.0) % Neut # (Auto) (1.8-7.7) th/mm3 Lymph # (Auto) (1.0-4.8) th/mm3 [place] # (Auto) (0.0-0.9) th/mm3 Eos # (Auto) (0.0-0.4) th/mm3 Baso # (Auto) (0.0-0.2) th/mm3 WBC Differential Differential Comment PT (9.8-11.6) sec INR Ratio APTT (24.3-30.1) sec Sodium 136 (136-145) meq/L Potassium 3.9 (3.5-5.1) meq/L Chloride 102 (98-107) meq/L Carbon Dioxide 25.0 (21.0-32.0) meq/L Anion Gap 9 (5-15) meq/L BUN 17 (7-18) mg/dL Creatinine 1.00 (0.60-1.30) mg/dL Estimated GFR 73 L (>89) mL/min Random Glucose 83 (74-106) mg/dL Calcium 8.8 (8.5-10.1) mg/dL Total Bilirubin 0.3 (0.2-1.0) mg/dL AST 18 (15-37) U/L ALT 27 (12-78) U/L Alkaline Phosphatase 73 (45-117) U/L Total Creatine Kinase 96 74 (39-308) U/L Troponin I Less than 0.02 L Less than 0.02 L Less than 0.02 L (0.02-0.05) ng/mL Total Protein 7.5 (6.4-8.2) g/dL Albumin 3.7 (3.4-5.0) g/dL Urine Color (Yellw/Straw) Urine Clarity (Clear) Urine pH (5.0-8.5) Ur Specific [place] (1.002-1.035) Urine Protein (Neg-Trace) mg/dL Urine Glucose (UA) (Negative) mg/dL Urine Ketones (Negative) mg/dL Urine Occult Blood (Negative) Urine Nitrate (Negative) Urine Bilirubin (Negative) Urine Urobilinogen (Less than 2) mg/dL Ur Leukocyte Esterase (Negative) Urine Mucus (Occasional) /lpf Micro UA Comment Ur Microscopic Review Urine Culture Comments Imaging Data Radiologist's impression: Chest X-Ray 05/06/18 00:00 CONCLUSION: No acute cardiopulmonary abnormality is identified. Discharge Plan Discharge Disposition Patient Disposition: 30 Still Patient Discharge Details Diagnosis: Chest pain Physicians Team ED Provider: Reggie Dickerson Primary Care Provider: UNKNOWN, Attending Provider: Fabio Marcus Discharge Interventions Interventions: ED Discharge Assessment Last Done: 05/07/18 04:15 Vital Signs Last Done: 05/06/18 22:42 Status ED Status: Left Department Discharge Information Discharge Date/Time: 05/07/18 04:28
[2018-05-07 04:15] VITALS: O2SAT 95
[2018-05-07 04:34] LABS: Creatine Kinase 96 U/L (39-308)
[2018-05-07 04:50] VITALS: BP 114/68; RESP 16; TEMP 97.9
[2018-05-07 05:13] VITALS: PULSE 78
[2018-05-07 07:04] LABS: Creatine Kinase 74 U/L (39-308)
--- NOTE | 2018-05-07 11:29 | ECG ---
Date Performed: 05/07/2018 Time Performed: 04:04:21 PTAGE: 72 years EKG: Sinus rhythm NORMAL ECG PREVIOUS TRACING : 01/02/2017 05.59 DOCTOR: Jewel Cifuentes Interpretating Date/Time 05/07/2018 11:28:39
--- NOTE | 2018-05-07 11:29 | ECG ---
Date Performed: 05/07/2018 Time Performed: 06:46:43 PTAGE: 72 years EKG: Sinus rhythm NORMAL ECG PREVIOUS TRACING : 05/07/2018 04.04 DOCTOR: Jewel Cifuentes Interpretating Date/Time 05/07/2018 11:28:32
--- NOTE | 2018-05-07 11:31 | ECG ---
Date Performed: 05/06/2018 Time Performed: 22:59:50 PTAGE: 72 years EKG: Sinus rhythm NORMAL ECG PREVIOUS TRACING : 01/02/2017 05.59 DOCTOR: Jewel Cifuentes Interpretating Date/Time 05/07/2018 11:30:35
== END 2018-05-07 08:25 | disposition left against medical advice (07) ==
LOC: NEDA 21:32 → NEPE 21:32 → NEPFCDU 05-07 04:21
PROVIDERS: ADMIT Internal Medicine Cardiovascular Disease; ATTEND Internal Medicine Cardiovascular Disease